=== PATIENT | female | born 1985 | race Caucasian/White ===

== ENCOUNTER → 2017-01-11 | Outpatient (REF) | payer BC | LOC: M LAB REF 16:27 | PROVIDERS: ATTEND Physician Assistant | DX: J02.9 Acute pharyngitis, unspecified (principal) ==

== ENCOUNTER → 2018-03-19 | Outpatient (REF) | payer BC | LOC: M LAB REF 11:44 | DX: N39.0 Urinary tract infection, site not specified (principal) | CPT/HCPCS: 87186 ==

== ENCOUNTER → 2018-10-07 | Outpatient (REF) | payer BC ==
[2018-10-09 14:54] LABS: HPV HYBRID CAPTURE II Negative (Negative)
== END ==
LOC: M LAB REF 17:51
PROVIDERS: ATTEND Obstetrics & Gynecology
DX: Z12.4 Encounter for screening for malignant neoplasm of cervix (principal)